=== PATIENT | male | born 1965 | race African-American/Black ===

== ENCOUNTER → 2016-09-29 | Outpatient (CLI) | payer OTHER ==
[~2016-09-29] MED LIST: CEFAZOLIN 1GM VI1 G1 IV; CEPACOL SORE T1 EAC7; CIPRO500 MG PO; CLORPACTIN WCS-92 GM IRRIG; CLOTRIMAZOLE-BE15 GM TOP; ENOXAPARIN40 MG/0.1 SUBQ; FENTANYL 0.50 MCG/ML IV PUSH; IV ANTIBIOTIC IV; LASIX 40 MG TAB40 M2 PO; LOPERAMIDE 2 MG2 M1 PO; MAGOX 400400 MG PO; NAFCILLIN 2 GM A2 G1 IV; NEURONTIN 300300 M1 PO; ONDANSETRON4 MG/2 ML IV PUSH; OXYCODONE-APAP1 EAC6 PO; PERCOCET 7.5-31 EACH PO; POTASSIUM20 PO; PROTEINEX-18 LI30 ML PO; PROTONIX40 M1 PO; RIFADIN300 MG PO; TYLENOL325 MG PO; VITAMINC500 PO; ZINC SULFATE 2220 M1 PO; [UNRECOGNIZED DRUG - OTHER]
== END ==
LOC: HYPER 07:49
DX: L89.153 Pressure ulcer of sacral region, stage 3 (principal); L89.323 Pressure ulcer of left buttock, stage 3; L89.892 Pressure ulcer of other site, stage 2; L89.893 Pressure ulcer of other site, stage 3; G82.21 Paraplegia, complete; M86.9 Osteomyelitis, unspecified; Z72.89 Other problems related to lifestyle

== ENCOUNTER → 2017-04-13 | Outpatient (CLI) | payer OTHER | LOC: HYPER 11-24 07:40 | DX: L89.224 Pressure ulcer of left hip, stage 4 (principal); L89.154 Pressure ulcer of sacral region, stage 4; L89.893 Pressure ulcer of other site, stage 3; G82.21 Paraplegia, complete; M86.9 Osteomyelitis, unspecified; Z72.89 Other problems related to lifestyle ==

== ENCOUNTER → 2017-09-05 | Outpatient (CLI) | payer MEDICARE | LOC: HYPER 06:52 | DX: L89.154 Pressure ulcer of sacral region, stage 4 (principal); L89.892 Pressure ulcer of other site, stage 2; G82.21 Paraplegia, complete; G06.1 Intraspinal abscess and granuloma; M86.68 Other chronic osteomyelitis, other site; Z72.89 Other problems related to lifestyle ==

== ENCOUNTER → 2017-10-31 | Outpatient (CLI) | payer OTHER | LOC: HYPER 06:41 | DX: L89.154 Pressure ulcer of sacral region, stage 4 (principal); L89.323 Pressure ulcer of left buttock, stage 3; L89.313 Pressure ulcer of right buttock, stage 3; L89.892 Pressure ulcer of other site, stage 2; M86.8X8 Other osteomyelitis, other site; G82.21 Paraplegia, complete; G06.1 Intraspinal abscess and granuloma; G89.4 Chronic pain syndrome; G82.20 Paraplegia, unspecified; Z72.89 Other problems related to lifestyle ==

== ENCOUNTER → 2018-08-09 | Outpatient (CLI) | payer OTHER | LOC: HYPER 08:07 | DX: L89.154 Pressure ulcer of sacral region, stage 4 (principal); L89.893 Pressure ulcer of other site, stage 3; L89.223 Pressure ulcer of left hip, stage 3; L89.213 Pressure ulcer of right hip, stage 3; M86.8X8 Other osteomyelitis, other site; G06.1 Intraspinal abscess and granuloma; G82.21 Paraplegia, complete; G89.4 Chronic pain syndrome ==

== ENCOUNTER → 2018-10-25 | Outpatient (CLI) | payer OTHER | LOC: HYPER 10-17 14:47 | DX: L89.154 Pressure ulcer of sacral region, stage 4 (principal); L89.894 Pressure ulcer of other site, stage 4; L89.323 Pressure ulcer of left buttock, stage 3; M86.8X8 Other osteomyelitis, other site; G89.4 Chronic pain syndrome; G82.21 Paraplegia, complete; G06.1 Intraspinal abscess and granuloma ==

== ENCOUNTER → 2018-11-08 | Outpatient (CLI) | payer OTHER | LOC: HYPER 07:22 | DX: L89.893 Pressure ulcer of other site, stage 3 (principal); L89.323 Pressure ulcer of left buttock, stage 3; G06.1 Intraspinal abscess and granuloma; G82.21 Paraplegia, complete; G89.4 Chronic pain syndrome; M86.8X8 Other osteomyelitis, other site ==

== ENCOUNTER → 2018-12-27 | Outpatient (CLI) | payer OTHER | LOC: HYPER 08:39 | DX: L89.154 Pressure ulcer of sacral region, stage 4 (principal); L89.893 Pressure ulcer of other site, stage 3; G82.21 Paraplegia, complete; G06.1 Intraspinal abscess and granuloma; L84 Corns and callosities; G89.4 Chronic pain syndrome ==

== ENCOUNTER → 2019-02-06 | Outpatient (CLI) | payer OTHER | LOC: HYPER 06:49 | DX: L89.154 Pressure ulcer of sacral region, stage 4 (principal); L89.224 Pressure ulcer of left hip, stage 4; L89.893 Pressure ulcer of other site, stage 3; L89.213 Pressure ulcer of right hip, stage 3; G82.21 Paraplegia, complete; G06.1 Intraspinal abscess and granuloma; L84 Corns and callosities; G89.4 Chronic pain syndrome; M86.8X8 Other osteomyelitis, other site ==

== ENCOUNTER → 2019-05-20 | Outpatient (CLI) | payer OTHER | LOC: HYPER 04-08 06:39 | DX: L89.154 Pressure ulcer of sacral region, stage 4 (principal); L89.893 Pressure ulcer of other site, stage 3; L89.213 Pressure ulcer of right hip, stage 3; L89.892 Pressure ulcer of other site, stage 2; M86.8X8 Other osteomyelitis, other site; G06.1 Intraspinal abscess and granuloma; G82.21 Paraplegia, complete; G89.4 Chronic pain syndrome; R60.0 Localized edema ==

== ENCOUNTER → 2019-07-28 | Outpatient (CLI) | payer OTHER | LOC: HYPER 07-21 19:28 | DX: L89.154 Pressure ulcer of sacral region, stage 4 (principal); L89.213 Pressure ulcer of right hip, stage 3; L89.893 Pressure ulcer of other site, stage 3; G89.4 Chronic pain syndrome; G82.21 Paraplegia, complete; G06.1 Intraspinal abscess and granuloma; M86.8X8 Other osteomyelitis, other site; D50.9 Iron deficiency anemia, unspecified; R60.0 Localized edema ==

== ENCOUNTER → 2019-12-17 | Outpatient (CLI) | payer OTHER | LOC: HYPER 09:19 | DX: L89.154 Pressure ulcer of sacral region, stage 4 (principal); G82.21 Paraplegia, complete; G06.1 Intraspinal abscess and granuloma; G89.4 Chronic pain syndrome; R60.0 Localized edema; M86.8X8 Other osteomyelitis, other site ==

== ENCOUNTER 2020-05-18 12:34 | Inpatient (IN) | payer OTHER ==
[~2020-05-18] VITALS: Ht 177.8 cm; Wt 98.9 kg
[~2020-05-18 12:34] MED LIST changes: -PERCOCET 10-321 EAC1 PO
[2020-05-18 12:56] VITALS: BP 86/53
[2020-05-18 14:06] LABS: HEMATOCRIT 22.8 % (42.0-52.0); HEMOGLOBIN 7.6 gm/dL (14.0-18.0); MCH 28.1 pg (26.0-34.0); MCHC 33.1 g/dL (28.0-37.0); PLATELET COUNT 538 thou/uL (150-400); RBC 2.69 mil/uL (4.50-6.00); RDW 14.9 % (10.5-14.5); WBC 13.8 thou/uL (4.0-11.0)
[2020-05-18 14:17] LABS: CALCIUM 8.3 mg/dL (8.5-10.1); CREATININE 2.2 mg/dL (0.7-1.3); POTASSIUM 5.2 mmol/L (3.5-5.1)
[2020-05-18 14:22] LABS: ALBUMIN 0.7 g/dL (3.4-5.0); TOTAL BILIRUBIN 0.3 mg/dL (0.2-1.0); TOTAL PROTEIN 7.3 g/dL (6.4-8.2)
[2020-05-18 14:29] LABS: ABSOLUTE NEUTROPHILS 10.8 thou/uL (1.4-8.2)
[2020-05-18 14:53] VITALS: BP 95/52
[2020-05-18 15:07] VITALS: BP 86/43
[2020-05-18 15:25] VITALS: BP 99/69
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
[2020-05-18 17:00] LABS: ALBUMIN 0.8 g/dL (3.4-5.0); TOTAL PROTEIN 6.3 g/dL (6.4-8.2)
[2020-05-18 18:10] LABS: TSH 1.932 uIU/mL (0.358-3.740)
--- NOTE | 2020-05-18 18:37 | NUR ---
WOUND: DEFERRED WOUND PIC TAKING/MEASUREMENTS UNTIL AFTER DINNER, THEN POLITELY DECLINED. STATES HE JUST CAME FROM WOUND CLINIC AND IT'S DRESSED. WITH GENTLE EDUCATION ON POLICIES FOR DIFFERING OFFICES/UNITS HE STILL DECLINED AT THIS TIME. STATES ONE OF THE PHYSICIANS TOLD HIM HE'D HAVE SURGERY FOR HIS WOUND ON SUNDAY. NO ORDERS OF THIS TIME. WILL CONTINUE TO MONITOR.
[2020-05-18 20:06] VITALS: BP 100/66
[2020-05-19 00:25] VITALS: BP 91/55
[2020-05-19 05:25] VITALS: BP 91/55
[2020-05-19 05:32] LABS: HEMATOCRIT 22.3 % (42.0-52.0); HEMOGLOBIN 7.2 gm/dL (14.0-18.0); MCH 27.9 pg (26.0-34.0); MCHC 32.3 g/dL (28.0-37.0); MCV 86.5 fL (80.0-100.0); RBC 2.58 mil/uL (4.50-6.00); RDW 15.1 % (10.5-14.5); WBC 11.2 thou/uL (4.0-11.0)
[2020-05-19 05:44] LABS: CALCIUM 7.9 mg/dL (8.5-10.1); CREATININE 2.5 mg/dL (0.7-1.3); MAGNESIUM 1.4 mg/dL (1.8-2.4); POTASSIUM 4.8 mmol/L (3.5-5.1)
[2020-05-19 08:12] VITALS: BP 92/57
--- NOTE | 2020-05-19 10:20 | NUR ---
Assess due to RD consult received. Pt paraplegic, hx chronic sacral and coccyx wound, stage IV admitted with sepsis. Secretions from wound. Has good appetite but has lost about 10 lb from usual likely related to increased nutrient demands. On vitamin C and zinc supplementation. B12 wnl. Having foods brought in by and also requesting both Ensure Max bid and Ensure Enlive 1x day. Low nutrition risk with appropriate nutrition interventions in place.
[2020-05-19 11:20] VITALS: BP 84/51
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
[2020-05-19 11:52] LABS: % SATURATION 19 % (20-39); IRON 9 ug/dL (65-175); TIBC 47 ug/dL (250-450)
[2020-05-19] MEDS ORDERED: PERCOCET 10-321 EAC1 PO (12:03)
[2020-05-19 14:04] VITALS: BP 105/58
--- NOTE | 2020-05-19 14:39 | NUR ---
ASSUMED CARE AT CHANGE OF SHIFT. A/OX4, DENIES CHEST PAIN, DENIES SOB, PAIN MANAGED WITH PRN MEDICATION. PT FROM HOME WITH FAMILY. WHEELCHAIR BOUND. SUPERPUBIC CATH 840 OUTPUT, BM 05/18/20. SACRAL WOUND WITH DRESSING INTACT. PLANS FOR DEBRIMENT TOMORROW PT NOTIFIED OF SURGERY. PT TANSFERED TO 459. REPORTED OFF TO IRVIN DA SILVA. PT EXPRESSED HE DOES NOT HAVE NORMAL APPETITE. ECOURAGED TO DRINK SUPPLEMENTS. ALL BELONGINGS AND PERSONAL WC SENT TO 459.
--- NOTE | 2020-05-19 16:41 | NUR ---
Pt transfered from ccu to 459 at 1500 per bed in stable condition.Heather rn notified about putting transfer order in. Around 1620,lab called to notify this rn that pt was positive for covid 19.Dr Leach,pt, and [facility] dry paste supervisor notified.Pt transfered to 3w per bed.Report off to Miah cisse.
--- NOTE | 2020-05-19 19:32 | NUR ---
PT WAS SEEN TODAY BY THIS RN, PT WAS STRUGGLING TO COPE WITH CURRENT DIAGNOSIS OF COVID AND CHANGING CARE PLAN REGARDING WOUND DEBRIDEMENT. PT STATED HE WOULD LIKE TO SPEAK WITH THE MD REGARDING CARE PLAN AND WANTS FURTHER EXPLANATION. RN SIGNING OFF NOW
[2020-05-19 19:41] VITALS: BP 80/49
--- NOTE | 2020-05-20 03:17 | NUR ---
ASSUMED CARE FROM DAY SHIFT, PT RESTING IN BED, WET TO DRY DRESSING TO BUTTOCK AND LARGE AMOUNT OF FOUL SMELLING DRAINAGE NOTED. DRY CLEAN PAD PLACED ON PT , BUT DRY ABD UNABLE TO STAY TO SKIN DUE TO PT SKIN MOIST.. PAIN MEDICATION TAKEN. PT RESTING WELL THROUHGOUT HOURLY ROUNDS.
[2020-05-20 04:35] LABS: HEMOGLOBIN 6.8 gm/dL (14.0-18.0)
[2020-05-20 04:36] LABS: HEMATOCRIT 21.2 % (42.0-52.0); MCH 27.7 pg (26.0-34.0); MCV 86.6 fL (80.0-100.0); RBC 2.45 mil/uL (4.50-6.00); RDW 15.3 % (10.5-14.5); WBC 9.3 thou/uL (4.0-11.0)
[2020-05-20 04:41] VITALS: BP 100/51
[2020-05-20 04:44] LABS: ALBUMIN 0.5 g/dL (3.4-5.0); CALCIUM 7.4 mg/dL (8.5-10.1); CREATININE 2.1 mg/dL (0.7-1.3); PHOSPHORUS 5.4 mg/dL (2.5-4.9); POTASSIUM 4.7 mmol/L (3.5-5.1)
[2020-05-20 05:34] LABS: URINE BILIRUBIN NEGATIVE (Negative); URINE BLOOD TRACE (Negative); URINE CLARITY CLEAR; URINE COLOR YELLOW; URINE GLUCOSE-RANDOM* NEGATIVE (Negative); URINE KETONES NEGATIVE (Negative); URINE LEUKOCYTES NEGATIVE (Negative); URINE NITRITE NEGATIVE (Negative); URINE PROTEIN (DIPSTICK) 2+ (Negative); URINE UROBILINOGEN 0.2 E.U./dl (0.2-1.0)
[2020-05-20 09:41] LABS: CRYSTALS None Seen /LPF (None Seen); FINE GRANULAR CASTS 0-3 Few /LPF (None Seen); SQUAMOUS 0-3 Few /LPF (0-3)
[2020-05-20 09:42] LABS: URINE RBC 0-2 Rare /HPF (0-2); URINE WBC 0-5 Rare /HPF (0-5)
[2020-05-20 09:43] LABS: BACTERIA 1-9 Few /HPF (None Seen)
--- NOTE | 2020-05-20 10:07 | NUR ---
DR NDIAYE HERE AND STATED TO GIVE PATIENT PO MEDS AND HEPARIN AFTER SURGERY. PT RESTING COMFORTABLY.
--- NOTE | 2020-05-20 14:09 | NUR ---
SW reviewed chart and spoke with nursing and attending physician. Pt was transferred to from 4/CCU yesterday after receiving positive COVID test. Pt in Enhanced Isolation and on IV abx. Pt scheduled to have surgical debridement today. VASILIY is following to assist as needed with discharge planning.
[2020-05-20 15:45] VITALS: BP 84/49
--- NOTE | 2020-05-20 15:54 | NUR ---
PATIENT RETURNED TO ROOM FROM OR [id number] 19 58 84/49 O2 SAT 99 % RA. TELE RECONNECTED. PT REG DIET GIVEN ICE WATER. IV IRON INFUSING ORDERED. PT STATES NO PAIN.
[2020-05-20 19:46] VITALS: BP 88/53
--- NOTE | 2020-05-21 01:03 | NUR ---
2100: DR. SILVA ROUNDMISHA ON PATIENT. HE HAS GIVEN HIS PERMISSION FOR THIS PATIENT TO BE DISCHARGE 05/21/20. THRESHOLD VALUE: GREATER THAN 35.
--- NOTE | 2020-05-21 05:03 | NUR ---
encouraged turns tonight. po pain medication effective for pain control. sacral,isheal,rt hip dressing is surgical from 05/22 debridement. dressing has shadowing and is leaking some pink drainage from superior edge, the chux under pad required changing. pt is very irritable, does not do well making his wishes known. carepan reviewed.
[2020-05-21 05:55] VITALS: BP 121/78
[2020-05-21 06:01] LABS: MCH 27.4 pg (26.0-34.0); MCHC 31.5 g/dL (28.0-37.0); MCV 87.1 fL (80.0-100.0); RBC 2.16 mil/uL (4.50-6.00); RDW 15.3 % (10.5-14.5); WBC 11.3 thou/uL (4.0-11.0)
[2020-05-21 06:13] LABS: HEMATOCRIT 18.8 % (42.0-52.0); HEMOGLOBIN 5.9 gm/dL (14.0-18.0)
[2020-05-21 07:44] VITALS: BP 70/42
[2020-05-21 08:07] LABS: CALCIUM 7.6 mg/dL (8.5-10.1); CREATININE 2.6 mg/dL (0.7-1.3); PHOSPHORUS 6.3 mg/dL (2.5-4.9); POTASSIUM 5.2 mmol/L (3.5-5.1)
[2020-05-21 08:09] LABS: ALBUMIN 0.5 g/dL (3.4-5.0)
--- NOTE | 2020-05-21 09:49 | NUR ---
COVID 19 TEST DONE AT THIS TIME L NARE TAKEN TO LAB
[2020-05-21 10:51] VITALS: BP 75/41; BP 80/41; BP 81/43
[2020-05-21 15:14] VITALS: BP 66/36; BP 82/54; BP 83/54; BP 85/52
--- NOTE | 2020-05-21 17:55 | NUR ---
DR CARLOS WOUND CARE DOCTOR HERE TO SEE PATIENT STATES TO RESUME TX BEFORE DEBRIDEMENT PER DR DAWSON THIS NURSE DID TX'S WITH DAKINS ORDERED.
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
[2020-05-21 19:36] VITALS: BP 82/50
[2020-05-21 21:41] VITALS: BP 84/478
[2020-05-22] VITALS (9 sets, daily range): BP systolic 77–95; BP diastolic 45–53
[2020-05-22 02:38] LABS: HEMATOCRIT 24.7 % (42.0-52.0); MCH 27.7 pg (26.0-34.0); MCHC 32.5 g/dL (28.0-37.0); MCV 85.3 fL (80.0-100.0); RBC 2.89 mil/uL (4.50-6.00); RDW 15.1 % (10.5-14.5); WBC 12.9 thou/uL (4.0-11.0)
[2020-05-22 03:18] LABS: CALCIUM 7.4 mg/dL (8.5-10.1); MAGNESIUM 1.4 mg/dL (1.8-2.4); POTASSIUM 5.1 mmol/L (3.5-5.1)
--- NOTE | 2020-05-22 04:11 | NUR ---
PT ALERT AND ORIENTED X4. BP HAS BEEN RUNNING LOW. ENCOURAGED PO FLUIDS. PT IS NONCOMPLIANT. WOULD NOT FINISH TEA. ZOFRAN GIVEN FOR NAUSEA. OXY CODONE GIVEN FOR C/O BUTOCK PAIN FROM WOUND. PT SLEPT AFTER PAIN MEDS. NS AT 150 PER IV L AC INFUSING. ZOSYN HUNG ORDERED. DR WHITE NOTIFIED RE BP DECREASED INTO 70'S. STAT LABS DONE. HG 8. ALBUMIN HUNG ORDERED FOR BP IN THE 70'S. BP BACK TO 88/53 MAP 61 AFTER ALBUMIN. PT RESTING QUIETLY . ENC PT TO TURN Q 2 HRS. DRESSING INTACT TO SACRAL WOUND WITH MODERATE AMOUTS BLOODY DRAINAGE NOTED.
--- NOTE | 2020-05-22 06:24 | NUR ---
NOTIFIED JAY WHITE OF BP STILL LOW WITH MAP 54. SHE STATED SHE WILL PASS IT ON IN REPORT TO DR NDIAYE. PT ASYMPTOMATIC WITH CURRENT BP. UO 450.
--- NOTE | 2020-05-22 18:21 | NUR ---
ASSUMED PATIENT CARE AT 0700. A/O X4. POOR APPETITE, ONLY 2-3 BIT EACH MEAL. BP AT SOFT SIDE. DRESSING CHANGE PER ORDER. SLOWLY TOWARDS POC GOALS.
[2020-05-23] VITALS (7 sets, daily range): BP systolic 89–100; BP diastolic 48–65
--- NOTE | 2020-05-23 09:20 | NUR ---
PT ALERT AND ORIENTED. BP BETTER TONIGHT WITH MIDODRINE. PT REFUSING TO EAT. HE WILL DRINK ENSURE. IV SITE X2 INFILTRATED. ARMS ARE EDEMATOUS. FEET HAVE 1 + EDEMA ALSO. LAB UNABLE TO GET LABS FOR THIS AM. NOTIFIED DAY SHIFT NS TO CALL FOR POSSIBLE PICC OR IV TEAM TO COME AGAIN. DRESSINGS TO WOUNDS ARE INTACT.
--- NOTE | 2020-05-23 10:03 | NUR ---
ASSUMED PATIENT CARE THIS AM AT APPROXIMATELY 0700. PATIENT IS AWAKE AND ALERT, SLEEPING AT THIS TIME. STATES HE IS FEELING TIRED/NAUSEATED THIS AM. NO IV ACCESS THIS AM IV TO RIGHT ARM INFILTRATED AND PATIENT BILATERAL ARMS ARE VERY EDEMATOUS. PATIENT STATES LAB WAS UNABLE TO DRAW BLOOD THIS AM BECAUSE HE IS A HARD STICK. STATES THAT HE DOES NOT WANT TO TAKE HIS PO MEDICATIONS AT THIS TIME BECAUSE HE IS FEELING NAUSEATED. IV TEAM CALLED FOR IV ACCESS. PAGED DR. NDIAYE TO ASK REGARDING PICC LINE IF APPROPRIATE.
--- NOTE | 2020-05-23 10:19 | NUR ---
discussed during prime time via phone call, still trying to stabilized his bp. he is covid +, from home. still requiring IV ABX. will cont following as needed for dc needs.
--- NOTE | 2020-05-23 11:16 | NUR ---
spoke with rivera rn with iv team. obtained order for picc for patient, states that creat is elevated and need approval from renal md for picc line insertion. dr mo states that he wants iv team to attempt to insert a peripheral iv first then if unable to achieve access then go ahead with picc line. rivera states she will speak with patient and attempt periphearal line first.
--- NOTE | 2020-05-23 12:17 | NUR ---
VASCULAR ACCESS NURSE CONSULTED FOR A PICC IF UNABLE TO GET A PERIPHERAL IV, A PERIPHERAL IV WAS OBTAINED WITH ULTRASOUND AND ALL LABS WERE DRAWN WITH IV STICK. PIV SECURED. THIS PATIENTS BILATERAL ARMS ARM EXTREMELY SWOLLEN WITH SMALL VEINS. A POOR CANIDATE FOR PICC AND MIDLINE ACCESS. IF A LONGER TERM ACCESS IS NEEDED A CENTRAL LINE WOULD BE MORE APPROPRIATE FOR THIS PATIENT IF NECESSARY.
[2020-05-23 12:35] LABS: ALBUMIN 0.8 g/dL (3.4-5.0); CALCIUM 7.7 mg/dL (8.5-10.1); CREATININE 3.3 mg/dL (0.7-1.3); PHOSPHORUS 5.8 mg/dL (2.5-4.9); POTASSIUM 4.6 mmol/L (3.5-5.1)
--- NOTE | 2020-05-24 01:24 | NUR ---
Pt prgressing slowly towards d/c goals. Bp better . Pt c/o pain to buttocks Medicated with oxycodone. Pt presently sleeping quietly no c/o. Encouraged pt to turn side to side to allow wounds to heal. Encouraged pt to eat and drink more protein in order for wounds to heal. Bed down in low locked position. Call light in reach . Bed alarm is on. SR on moitor. Will continue to monitor pt for changes.
[2020-05-24 03:53] VITALS: BP 92/52
--- NOTE | 2020-05-24 06:34 | NUR ---
PT RESTING QUIETLY. NO S/S DISTRESS. VSS. NO C/O PAIN PRESENTLY. PT FELLASLEEP AFTER OXYCODONE GIVEM DMITRI AND NICHOLAS X1.
[2020-05-24 08:15] VITALS: BP 99/66
[2020-05-24 11:31] VITALS: BP 106/65
--- NOTE | 2020-05-24 12:56 | NUR ---
DUE TO Pt'S CURRENT LIMITED MOBILITY PER DOCTOR'S ORDERS (NO SHEARING FORCE TO BUTTOCKS; ONLY MECHANICAL LIFTS FOR TRANSFERS BED<>W/C), Pt NO LONGER REQUIRES SKILLED P.T. GOALS ARE NO LONGER APPROPRIATE. WILL SIGN OFF/DISCHARGE Pt AT THIS TIME
--- NOTE | 2020-05-24 13:31 | NUR ---
TODAY MEDINA 3RD ATTEMPT FOR OT TO EVALUATE PT. PT. REPORTS HE DOES NOT WANT OT SERVICES, POLITEFULLY DECLINES OT. STATES HE FEELS HE DOES NOT NEED THERAPY RIGHT NOT AND WANTS TO ONLY FOCUS ON HIS WOUND HEALING. DECLINES THERAPY EVAL. STATES HE HAS HIS THERABAND THE OTHER OT (JIAN) PROVIDED HIM AND HE WILL CONTINUE TO USE IT. ACUTE OT SIGNING OFF.
--- NOTE | 2020-05-24 15:07 | PATH ---
[facility] [address] [address] PATHOLOGY RPT PROCEDURE Name: YANELY SOUZASTERLING Medina Room #: 357-P ADM IN M.R.#: [id number] Admission: 05/18/20 Date of : 63 Discharge: Report #: [id number] Path Case #: [id number] LCA Accession Number: [id number] . 01 Material submitted: . PART A: sacrum - SACRAL TISSUE PART B: sacrum - SACRAL BONE . 01 Clinical history: . DECUBITUS ULCER OF SACRUM, SEPSIS, CELLULITIS, UNIQUE, PARAPLEGIC . 02 Diagnosis: A. Sacral tissue, debridement: - Skin and subcutaneous tissue showing ulceration along with extensive gangrenous necrosis. - Squamous epithelium showing reactive changes. . B. Sacral bone, debridement: - Marked acute osteomyelitis associated with marked acute inflammation within adjacent tissues. (IUV:margaret; 05/24/2020) QMS 05/24/2020 1257 Local . 02 Electronically signed: . Jeaneth Gross MD, Pathologist NPI- [id number] . 01 Gross description: . A. The specimen is received in formalin, labeled "Magdy Souza, sacral tissue". Received are multiple segments of dusky hammer-scherer to necrotic-appearing skin admixed with yellow-scherer to dusky pink-hammer soft tissue and possible muscle the specimen is submitted representatively in cassette A1. . B. The specimen is received in formalin, labeled "Magdy Souza, sacral bone". Received are multiple fragments of light scherer bone admixed with hammer-brown soft tissue measuring 3.8 x 3.2 x 0.8 cm in aggregate dimensions. The specimen is submitted representatively in cassette B1, following light decalcification. (CAA; 05/21/2020) QA/QA 05/21/2020 1333 Local . 02 Pathologist provided ICD-10: L89.159 . 02 CPT . 048483, [id number], [id number] [place] [id number] PATHOLOGY RPT PROCEDURE Name: MAGDY SOUZA Room #: 357-P [facility] IN M.R.#: [id number] Admission: 05/18/20 Date of : 63 Discharge: Report #: [id number] Path Case #: [id number] Specimen Comment: A courtesy copy of this report has been sent to [phone], [phone]- Specimen Comment: [phone], Specimen Comment: Report sent to ,DR NDIAYE / DR DE LA CRUZ Performed at: [address], [place], [place] [id number] MD Jeremie Muñoz MD Phone: [phone] Performed at: [address] [id number] MD Jeaneth Gross MD Phone: [phone]
--- NOTE | 2020-05-24 16:18 | NUR ---
SW reviewed chart and spoke with nursing and attending physician. Pt is Enhanced Isolation due to COVID-19. Pt to have PICC line placed today and plan is for lap-assisted diverting colostomy and excisional and ultrasonic debridement of sacral decubitus ulcer on Sunday morning. Pt is afebrile and on IV abx. Pt is not requiring O2. SW is following to assist as needed with discharge planning.
[2020-05-24 18:38] VITALS: BP 93/57
--- NOTE | 2020-05-24 19:14 | NUR ---
VAT CONSULTED FOR A PICC FOR LT ABX. PT HAS HX OF PARAPLEGIA, GROSS EDEMA, WEEPING SKIN WHERE PICC SITE WOULD BE AND UNIQUE. DUE TO THE ISSUES ABOVE AND A DISCUSSION WITH DR SILVA A TICC WILL BE A BETTER OPTION FOR HIM. DISCUSSED WITH PT WELL. SPOKE WITH IR STAFF AND PT ON SCHEDULE FOR TICC FOR AFTERNOON 05/25/20 AND SHOULD BE NPO AFTER MN.
[2020-05-24 20:11] VITALS: BP 102/56
[2020-05-25 04:17] VITALS: BP 111/70
--- NOTE | 2020-05-25 06:07 | NUR ---
PT ALERT AND ORIENTED X4. VSS AFEBRILE. STILL HAS SWELLING BOTH ARMS AND FEET. REPOSITIONING PT Q 2 HRS. HE IS ABLE TO TURN SELF . WOUND CARE DONE ORDERED. PT WAS INC OF FORMED BROWN STOOL IN LARGE AMOUNTS. PT CONSENTED TO PICC LINE PROCEDURE TODAY. NO S/S DISTRESS. BP WNL TONIGHT.
[2020-05-25 06:09] LABS: HEMOGLOBIN 7.4 gm/dL (14.0-18.0); MCH 27.2 pg (26.0-34.0); MCHC 30.9 g/dL (28.0-37.0); RBC 2.72 mil/uL (4.50-6.00); RDW 16.1 % (10.5-14.5); WBC 15.4 thou/uL (4.0-11.0)
[2020-05-25 06:28] LABS: ALBUMIN 0.7 g/dL (3.4-5.0); CALCIUM 7.4 mg/dL (8.5-10.1); CREATININE 4.1 mg/dL (0.7-1.3); MAGNESIUM 1.6 mg/dL (1.8-2.4); PHOSPHORUS 5.3 mg/dL (2.5-4.9); POTASSIUM 4.4 mmol/L (3.5-5.1)
[2020-05-25 07:39] VITALS: BP 96/59
[2020-05-25 07:52] LABS: APTT 49.3 Seconds (24.5-32.8); INR 1.2; PROTIME 12.1 Seconds (9.3-11.4)
--- NOTE | 2020-05-25 13:40 | NUR ---
SW reviewed chart and spoke with nursing and attending physician. Pt is in Enhanced Isolation due to COVID-19. Pt is afebrile and in IV abx. Not requiring O2. Pt to have PICC line placed today and diverting colostomy tomorrow. Pt may need to start dialysis. SW requested attending physician to discuss LTAC placement with pt. Pt has been to [facility] in the past. SW is following to assist as needed with discharge planning.
[2020-05-25 15:45] VITALS: BP 104/64
[2020-05-25 19:14] VITALS: BP 114/71
[2020-05-26 03:42] VITALS: BP 103/72
[2020-05-26 06:26] LABS: HEMOGLOBIN 7.1 gm/dL (14.0-18.0); MCH 28.3 pg (26.0-34.0); MCHC 32.4 g/dL (28.0-37.0); MCV 87.4 fL (80.0-100.0); RBC 2.52 mil/uL (4.50-6.00); RDW 16.2 % (10.5-14.5)
--- NOTE | 2020-05-26 06:27 | NUR ---
PT MAKING PROGRESS TOWARDS GOALS. ON ROOM AIR [id number] THE NIGHT. DENIED ANY SOA AT REST. ABLE TO ASSIST WITH TURNING BY GRABBING THE RAILING. NO BM OVERNIGHT. DESULFURIZER HAND ATTEMPED TO GIVE PT BATH BUT HE REPORTEDLY REFUSED. WHILE SPEAKING WITH PT, THIS RN INFORMED HIM THAT IT WAS A STANDARD PRESURGERY BATH BUT PT CONTINUED TO REFUSE. "I'M TRYING TO GET SOME SLEEP HERE, BUT CONSTANT INTERRUPTIONS FOR THIS AND THAT, BEEPING THINGS, I CAN'T GET NO SLEEP."
[2020-05-26 06:55] LABS: ALBUMIN 0.6 g/dL (3.4-5.0); CALCIUM 7.3 mg/dL (8.5-10.1); MAGNESIUM 1.6 mg/dL (1.8-2.4); PHOSPHORUS 5.6 mg/dL (2.5-4.9); POTASSIUM 4.7 mmol/L (3.5-5.1)
[2020-05-26 08:11] VITALS: BP 126/73
--- NOTE | 2020-05-26 13:09 | NUR ---
SW reviewed chart and spoke with nursing and attending physician. Pt is in Enhanced Isolation due to COVID-19. Pt is afebrile and on IV abx. Pt to have diverting colostomy placed today. Attending physician to discuss LTAC placement with pt. SW is following to assist as needed with discharge planning.
[2020-05-26 15:10] VITALS: BP 96/63
[2020-05-26 17:58] VITALS: BP 113/74
--- NOTE | 2020-05-26 18:42 | NUR ---
Pt left for surgery 1130. Returned at 1500. He was alert and arousable, yet sleepy. O2 in place for comfort. Colostomy located RUQ, bloody liquid noted, no issues. IV fluids infusing. At this time pt c/o pain to RUQ, pp given. He remains on a clear liquid diet. Pt educated regarding colosomy maintenance. Drsg to sacrum dry and intact. Fluids enouraged, call light in reach.
[2020-05-26 20:05] VITALS: BP 121/56; BP 21/56
[2020-05-27] VITALS (8 sets, daily range): BP systolic 11–128; BP diastolic 58–77
--- NOTE | 2020-05-27 05:50 | NUR ---
PT MAKING POOR PROGRESS TOWARS GOALS. ON NA BICARG GTT AT 100ML/HR OVERNIGHT. NOTED SUPRAPUBIC URINARY OUTPUT 160ML FOR PAST 12 HOURS (400ML RECORDED ON DAY SHIFT). WILL ASK DAY RN TO REPORT UOP TO RENAL SERVICE.
[2020-05-27 06:02] LABS: MCV 86.7 fL (80.0-100.0)
[2020-05-27 06:04] LABS: MCH 28.1 pg (26.0-34.0); MCHC 32.4 g/dL (28.0-37.0); RBC 2.18 mil/uL (4.50-6.00); RDW 16.3 % (10.5-14.5); WBC 11.2 thou/uL (4.0-11.0)
[2020-05-27 06:17] LABS: HEMATOCRIT 18.9 % (42.0-52.0); HEMOGLOBIN 6.1 gm/dL (14.0-18.0)
[2020-05-27 07:07] LABS: ALBUMIN 0.6 g/dL (3.4-5.0); CALCIUM 7.3 mg/dL (8.5-10.1); CREATININE 4.3 mg/dL (0.7-1.3); PHOSPHORUS 5.7 mg/dL (2.5-4.9); POTASSIUM 4.5 mmol/L (3.5-5.1)
--- NOTE | 2020-05-27 09:31 | NUR ---
OSTOMY CARE; ALERT, COOPERATIVE, STOMA DARK BEEFY RED, NO STOOL, SCANT BRIGHT RED BLOODY DRAIANGE, POUCH INTACT, NO LEAKAGE, VERY RECEPTIVE TO OSTOMY EDUCATION AND MANAGEMENT, STATES FATHER HAD AN OSTOMY AND HIS MOTHER ASSISTED W/ CARE, STATES MOTHER AND/OR FAMILY MEMBERS WOULD BE WILLING TO ASSIST W/ OSTOMY CARE THEY HELPED W/ WOUND CARE, SUPPLIES AND TEACHING INFO LEFT AT BS, WILL ORDER SECURE START SYSTEM TO BE SENT TO HOME, WILL CONT TO FOLLOW PRN
--- NOTE | 2020-05-27 13:19 | NUR ---
VASILIY reviewed chart and spoke with nursing and attending physician. Pt is s/p diverting colostomy placement. Pt remains on IV abx. Pt to have a blood transfusion today. truck crane operator helper provided education to pt at bedside earlier today. VASILIY placed call to pt's room to discuss discharge plans. No answer. VASILIY will continue to contact pt to discuss LTAC placement v. home with HH. VASILIY is following to assist as needed with discharge planning.
--- NOTE | 2020-05-27 17:53 | NUR ---
RN HAS ASSUMED PT'S CARE AT 0700AM, PT IS A&OX3, PT IS CONTINUING IV ABX AND PAIN MANAGEMENT AND WOUND CARE , PT'S NEW COLOSYOMY BAG HAS VERY SMALL LIGHT RED LIQUID DRINAGE, PT HAS 1UNIT BLOOD TRANFUSION TODAY, PT IS TOLERATED , NO TRANSFUSION REACHING BY THIS TIME, RN HAS CALLED TO REPORT PT'S LOW OUTPUT ( URINE ) AND PT'S ABD IS DISTENDED, NEW ORDER RECEIVED,
--- NOTE | 2020-05-28 00:24 | NUR ---
ASSESSMENT: PT REMAIN ALERT AND ORIENT TIMES THREE. FORGETFUL AT TIMES. VSS, AFBRILE. MED-SURG STATUS. PT REFUSED DRESSING CHANGE ON RIGHT ISCHIAL AND SACRUM STATING THAT "IT DOESN'T NEED CHANGING". DRESSING WAS INTACT. KUB RESULTS DID NOT REVEAL A BLOCKAGE OF COLOSTOMY. COLOSTOMY PUTTING OUT MINIMAL AMT OF DARK BLOODY LIQUID. PT STATE THAT "IT FEELS LIKE POOP WILL COME OUT OF MY MOUTH". PRN PAIN MEDS GIVEN WITH PARTIAL RELIEF. PT TURNS SELF IN BED. SUPER PUBIC CATH NOTED WITH MINIMAL AMT OF UO. WILL CONTINUE TO MONITOR OUTPUT THROUGH OUT SHIFT. SLOW PROGRESS TOWARDS DC GOALS.
[2020-05-28 06:29] LABS: ABSOLUTE NEUTROPHILS 13.9 thou/uL (1.4-8.2); BASOPHILS 0.3 % (0.0-2.0); EOSINOPHILS 1.5 % (0.0-3.0); HEMATOCRIT 21.2 % (42.0-52.0); LYMPHOCYTES 17.1 % (24.0-44.0); MCH 28.6 pg (26.0-34.0); MCHC 33.3 g/dL (28.0-37.0); MONOCYTES 5.9 % (1.0-8.0); PLATELET COUNT 379 thou/uL (150-400); POLYS 75.2 % (36.0-66.0); RBC 2.46 mil/uL (4.50-6.00); RDW 16.1 % (10.5-14.5); WBC 18.5 thou/uL (4.0-11.0)
[2020-05-28 06:38] LABS: ALBUMIN 0.7 g/dL (3.4-5.0); CALCIUM 7.4 mg/dL (8.5-10.1); CREATININE 4.7 mg/dL (0.7-1.3); PHOSPHORUS 6.1 mg/dL (2.5-4.9); POTASSIUM 4.4 mmol/L (3.5-5.1)
[2020-05-28 07:58] VITALS: BP 167/81
--- NOTE | 2020-05-28 09:17 | NUR ---
OSTOMY CARE; ALERT, COOPERATIVE, NO STOOL YET, PT STATES HE HAS NOT NOTICED ANY FLATUS EITHER, ABD SOFT BUT FEELS SLIGHTLY DISTENDED, POUCH INTACT, NO LEAKAGE, SCANT DARK REDDISH DRAINAGE, RECEPTIVE TO EDUCATION, SUPPLIES AT BS, WILL CONT TO FOLLOW
--- NOTE | 2020-05-28 12:45 | NUR ---
RD Recommendations: *Pt now with minimum of 5 days of very poor nutrition. Averaging < 20% meals, 4 out of 15 recent meals refused, 10 out of last 15 meals refused or only 5-10% consumed. Despite ongoing oral supplements TID, pt has severely declined in intake, or stopped drinking these as well. *If no PO improvement following the weekend, consider possible need for nutrition support w/ temporary ENTERAL feeds if gut function is working to optimize nutrition and/or TPN if awaiting return of gut function - though TPN poses increased risk for infection.
[2020-05-28 15:17] VITALS: BP 137/79
--- NOTE | 2020-05-28 15:42 | NUR ---
SW reviewed chart and spoke with nursing and attending physician. Pt is in Enhanced Isolation due to COVID-19. Pt is on IV abx. No weekend discharge planned. VASILIY placed call to pt's room to discuss discharge plan. No answer. VASILIY is following to assist as needed with discharge planning.
--- NOTE | 2020-05-28 16:06 | PATH ---
[facility] [address] [place] [address] PATHOLOGY RPT PROCEDURE Name: JOHN SOUZA Adam Room #: 357-P ADM IN M.R.#: [id number] Admission: 05/18/20 Date of : 63 Discharge: Report #: [id number] Path Case #: [id number] [facility] Accession Number: [id number] . 01 Material submitted: . PART A: sacrum - SACRAL SOFT TISSUE PART B: sacrum - SACRAL BONE . 01 Clinical history: . BONE SHOWING IN WOUND; SACRAL DECUBITUS ULCER AND INCONTINENCE . 02 Diagnosis: A. Skin and subcutaneous tissue, sacral soft tissue, debridement: - Ulceration along with fibrinoid degeneration and gangrenous necrosis. - Marked acute inflammation extends into deep subcutaneous tissues. . B. Bone, sacral bone, debridement: - Marked acute osteomyelitis. - Few fragments of skin and subcutaneous tissue with ulceration, fibrinoid degeneration as well as gangrenous necrosis. (IUV/db; 05/28/2020) LBQ 05/28/2020 1525 Local . 02 Electronically signed: . Jeaneth Gross MD, Pathologist NPI- [id number] . 01 Gross description: . A. The specimen is received in formalin, labeled "[place], sacral soft tissue". Received are two segments of hammer-brown to red-brown skin with attached underlying soft tissue measuring 9.0 x 5.9 x 3.3 cm in aggregate dimensions. The specimen is submitted representatively in cassette A1. . B. The specimen is received in formalin, labeled "[place], sacral bone". Received are multiple segments of light scherer bone admixed with a slight amount of soft tissue measuring 4.2 x 3.5 x 0.7 cm in aggregate dimensions. The specimen is submitted representatively in cassette B1, following light decalcification. (CAA; 05/27/2020) QA/[facility] 05/28/2020 1521 Local . 02 Pathologist provided ICD-10: M46.28, L89.159 . 02 CPT . 525825, [id number], [id number] [place] [address] PATHOLOGY RPT PROCEDURE Name: JOHN SOUZA Adam Room #: 357-P [facility] IN M.R.#: [id number] Admission: 05/18/20 Date of : 63 Discharge: Report #: [id number] Path Case #: [id number] Specimen Comment: A courtesy copy of this report has been sent to [phone], [phone]- Specimen Comment: [phone], Specimen Comment: Report sent to ,DR NDIAYE / DR DE LA CRUZ Performed at: [address], [place] [id number] MD Jeremie Muñoz MD Phone: [phone] Performed at: [address] [id number] MD Jeaneth Gross MD Phone: [phone]
--- NOTE | 2020-05-28 17:44 | NUR ---
RN HAS ASSUMED PT'S CARE AT 0700AM, PT IS A&OX2 ( PERSON AND PLACE ), PT CAN FOLLOW COMMANDS, RN HAS REPORTED RENAL DR ABOUT PT'S LOW RUINE OUTPUT , PT'S IV FLUID HAS DC, IV LASIX 40MG IV BID PER NEW ORDER, PT'S OUTPUT HAS IMPROVED , PT HAS URINE 650ML BY THIS TIME, PT STARTS SMALL EATING AND DRINKING, PT'S COLOSTOMY BAG HAS 20ML LIQUIND STOOL BY THIS TIME, RN HAS CALLED SURGICAL DR TO REPORT PT'S LOW STOOL OUTPUT AND VOMITTING , NEW ORDER : STAT ABD XRAY KUB AND CALL RESULTS TO DR, RN WILL REPORT TO NEXT SHIFT .
[2020-05-28 19:59] VITALS: BP 134/73
[2020-05-28 22:06] LABS: COMPLEMENT-C3 76 mg/dL (82-167); COMPLEMENT-C4 28 mg/dL (14-44)
--- NOTE | 2020-05-28 22:24 | NUR ---
PT ALERT AND ORIENTED X3. REORIENTED TO CORRECT HOSPITAL. HE THOUGHT HE WAS AT [facility]. PT IS [facility]. NS HAS TO REPEAT SEVERAL TIMES FOR PT TO UNDERSTAND. VSS AFEBRILE. KUB DONE. RESULTS READ TO DR MCDONOUGH . PT CONTINUES TO HAVE A DISTENDED ABDOMEN. BS HYPOACTIVE. COLOSTOMY HAS APPROXIMATELY 50 ML DARK BLOODY DRAINAGE NOTED AND 1 SMALL FORMED BROWN STOOL NOTED. INFORMED PT WANTS NG TO LIS. PT REFUSED. HE STATED HE FEELS MUCH BETTER AND SPILLED HIS BREAKFAST PLATE MIXED WITH SOME EMESIS AND MADE IT LOOK MUCH WORSE THAN IT WAS. I EXPLAINED TO HIM RATIONALE FOR NG. HE STILL REFUSED. CHARGE NS NOTIFIED. DR MCDONOUGH NOTIFED OF PTS REFUSAL. WILL REPEAT KUB AT 0800 ORDERED. PT DENIED NEED FOR PAIN PILL. IV ABX STARTED ORDERED. WILL CONTINUE TO MONITOR PT FOR CHANGES. TURNING PT Q 2 HRS.
[2020-05-29 03:19] VITALS: BP 143/88
--- NOTE | 2020-05-29 03:34 | NUR ---
PT RESTING QUIETLY. NO C/O PAIN. NO S/S DISTRESS. VSS.AFEBRILE. COLOSTOMY HAS SMALL AMT OF STOOL NOTED WITH 250 ML DARK BROWN/ RED DRAINAGE NOTED.
[2020-05-29 05:16] LABS: HEMOGLOBIN 6.9 gm/dL (14.0-18.0)
[2020-05-29 05:18] LABS: HEMATOCRIT 20.9 % (42.0-52.0); MCH 28.3 pg (26.0-34.0); MCHC 33.1 g/dL (28.0-37.0); MCV 85.4 fL (80.0-100.0); RBC 2.44 mil/uL (4.50-6.00); RDW 16.3 % (10.5-14.5); WBC 19.1 thou/uL (4.0-11.0)
[2020-05-29 05:39] LABS: ALBUMIN 0.6 g/dL (3.4-5.0); CALCIUM 7.5 mg/dL (8.5-10.1); CREATININE 4.8 mg/dL (0.7-1.3); PHOSPHORUS 6.1 mg/dL (2.5-4.9); POTASSIUM 4.4 mmol/L (3.5-5.1)
--- NOTE | 2020-05-29 05:45 | NUR ---
NOTIFIED Savana SALMERON OF HG 6.9. NO ORDERS GIVEN.
[2020-05-29 07:29] VITALS: BP 150/85
[2020-05-29 14:57] LABS: PROT/CREAT RATIO 11.3; URINE CREATININE-RANDOM* <13 mg/dL; URINE PROTEIN-RANDOM* 147.4 mg/dL (<11.9)
[2020-05-29 15:41] VITALS: BP 130/80
[2020-05-29 17:53] VITALS: BP 133/81; BP 150/90
[2020-05-29 21:51] VITALS: BP 133/81
[2020-05-30 02:50] LABS: HEMATOCRIT 25.3 % (42.0-52.0); HEMOGLOBIN 8.3 gm/dL (14.0-18.0); MCH 28.3 pg (26.0-34.0); MCHC 32.8 g/dL (28.0-37.0); MCV 86.2 fL (80.0-100.0); RBC 2.94 mil/uL (4.50-6.00); RDW 16.4 % (10.5-14.5); WBC 20.2 thou/uL (4.0-11.0)
[2020-05-30 02:59] LABS: ALBUMIN 0.6 g/dL (3.4-5.0); CALCIUM 7.4 mg/dL (8.5-10.1); CREATININE 4.8 mg/dL (0.7-1.3); PHOSPHORUS 6.2 mg/dL (2.5-4.9); POTASSIUM 4.4 mmol/L (3.5-5.1)
[2020-05-30 07:56] VITALS: BP 132/83
--- NOTE | 2020-05-30 08:00 | NUR ---
WHILE IN ROOM FOR ASSESSMENT. TALKED ABOUT WOUND CARE WITH PT. PT WOULD LIKE HIS WOUND CARE DONE AROUND 2 WITH A PAIN PILL PRIOR TO DRESSING CHANGE. PT REFUSES TURNING AT THIS TIME. PT ASKING QUESTIONS REGUARDING HIS OSTOMY. VERBAL DISCUSSION HAD.
--- NOTE | 2020-05-30 12:41 | NUR ---
RENAL DIET TAKEN INTO PT, SET ON BEDSIDE TABLE. ASKED PT IF HE WOULD LIKE ME TO HELP HIM SIT UP AND TURN THE LIGHTS ON SO HE CAN EAT. PT STATES -NO JUST PUT IT THERE I WILL GET IT IN A BIT- AND TURNS HIS HEAD BACK TO THE LEFT AND CLOSES HIS EYES.
[2020-05-30 16:32] VITALS: BP 142/87
[2020-05-30 20:06] VITALS: BP 129/76
--- NOTE | 2020-05-30 22:21 | NUR ---
PT IS ALERT AND ORIENTED X4. VSS AFEBRILE. HRR . LUNGS CLEAR. COLOSTOMY HAD MODERATE AMTS OF DARK-GREEN BROWN STOOL NOTED. S/P CATHEER HAS LG AMTS OF LIGHT CLEAR YELLOW URINE. NO C/O PAIN. ABX INFUSING. WILL CONINUE TO MONITOR PT FOR CHANGES.
[2020-05-31 03:35] VITALS: BP 140/84
--- NOTE | 2020-05-31 04:54 | NUR ---
PT RESTING QUIETLY. PROGRESSING TOWARDS D/C GOALS. ENC. PT TO TURN. HE WILL ONLY TURN FROM BACK TO LEFT SIDE. NO C/O PAIN. NO S/S DISTRESS.
[2020-05-31 07:47] VITALS: BP 140/83
[2020-05-31 08:07] LABS: CALCIUM 7.6 mg/dL (8.5-10.1); POTASSIUM 4.1 mmol/L (3.5-5.1)
[2020-05-31 08:10] LABS: CREATININE 3.8 mg/dL (0.7-1.3)
[2020-05-31 08:11] LABS: ALBUMIN 0.9 g/dL (3.4-5.0); PHOSPHORUS 5.8 mg/dL (2.5-4.9)
--- NOTE | 2020-05-31 09:24 | NUR ---
OSTOMY CARE NOTE; ALERT AND COOPERATIVE, POUCH ON X5 DAYS, CHANGED USING SHERI CUT TO FIT APPLIANCE, STOMA RED, VIABLE, BUDDED, PERISTOMAL SKIN INTACT, LOOSE BROWN STOOL NOTED, ADAPT RING APPLIED UNDER WAFER, RECEPTIVE TO EDUCATION, INFO AND SUPPLIES LEFT AT BS, ENCOURAGED TO PARTICIPATE IN OSTOMY CARE, REMINDED PT IS ENROLLED IN SHERI SECURE START PROGRAM WHERE DC KIT W/ SUPPLIES BEING SENT TO HOME RECOMMENDATIONS; CONT SHERI CUT TO FIT APPLIANCE, EMPTY PRN, CHANGE Q3-4 DAYS COAT CUTTER AWARE
[2020-05-31 13:07] LABS: ANA INTERPRETATION Negative (Negative)
--- NOTE | 2020-05-31 14:14 | NUR ---
VASILIY reviewed chart and spoke with nursing and attending physician. Pt remains in Enhanced Isolation due to COVID-19. Pt is afebrile and not requiring O2. Pt is on IV abx. VASILIY placed call to pt's room to discuss discharge planning. No answer. VASILIY placed call to pt's cell phone and number is not in service. VASILIY spoke with pt's , Terry, via phone to discuss discharge plan. Per Terry, pt/family would prefer pt return home with HH. They do not want pt to go to another facility. Pt has used HH in the past. Pt's does not have a preference of provider. SW explained need to find a HH agency that is in-network with insurance and can see COVID positive pts. Pt's verbalized understanding. VASILIY confirmed pt's home address. facilities planner to fax face sheet to [facility] for review. VASILIY is following to assist as needed with discharge planning.
--- NOTE | 2020-05-31 18:32 | NUR ---
PT CONTINUING TO REFUSE RENAL DIET. MOBILE SALES ASSISTANT ASSESS AND PLACED ON CALORIE COUNT. CONTINUE DAILY DRESSING CHANGE.
[2020-05-31 19:23] VITALS: BP 129/81
--- NOTE | 2020-05-31 23:31 | NUR ---
PT PROGRESSING TOWARDS D/C GOALS. VSS. AFEBRILE. HRR. 2+ GENERALIZED EDEMA NOTED. LUNGS CTA. BS ACTIVE. COLOSTOMY HAS DARK GREEN BROWN STOOL NOTED. ENC PO. PT REFUSED HIS DINNER TRAY. HE STATED IT TASTED TOO BLAND WITH NO SEASONING. REPOSITIONED PT. ALL DRESSING LOOK CLEAN DRY AND INTACT. PT REFUSED FEET TO BE ELEVATED. SCDS ON.
[2020-06-01 05:16] VITALS: BP 136/78
--- NOTE | 2020-06-01 05:50 | NUR ---
PT RESTING QUIETLY. VSS AFEBRILE. COLOSTOMY HAS BROWN STOOL LIQUIDS WITH SEMIFORMED STOOL IN MODERATE AMTS. TRAMMELL HAS LG AMTS CLEAR YELLOW URINE. NO S/S DISTRESS.
[2020-06-01 07:52] LABS: CALCIUM 7.3 mg/dL (8.5-10.1); CREATININE 3.7 mg/dL (0.7-1.3); PHOSPHORUS 5.3 mg/dL (2.5-4.9); POTASSIUM 3.7 mmol/L (3.5-5.1)
[2020-06-01 07:55] VITALS: BP 117/74
[2020-06-01 08:06] LABS: ALBUMIN 0.5 g/dL (3.4-5.0)
--- NOTE | 2020-06-01 09:21 | NUR ---
Nutrition: Calorie count was started due to prolonged poor oral intake. Pt refused 2 meals this day and consumed 10-20% of the other. No supplement intake. Increased needs for wound healing. Recommend: consider diet liberalization to see if this assists intake however would consider DH placement at this time for enteral feeds: Pivot 1.5 at 100 mL/hr x 12 hrs nocturnally.
--- NOTE | 2020-06-01 13:57 | NUR ---
VASILIY reviewed chart and spoke with nursing and attending physician. Pt is in Enhanced Isolation due to COVID-19. Pt is afebrile and on IV abx. Pt is on a calorie count. Pt is progressing towards goals for discharge. Pt may be ready for discharge home in 1-2 days pending kidney function. Plan is for pt to d/c home with HH. VASILIY placed call to pt's room. No answer. VASILIY left voice message for pt on his cell phone: [phone]. VASILIY placed call to pt's . No answer or option to leave voice message. master planner is contacting [facility] to coordinate HH for pt. VASILIY is following to assist as needed with discharge planning.
--- NOTE | 2020-06-01 15:32 | NUR ---
FAXED REFERRAL TO [facility]) SPOKE WITH STACEY IN INTAKE THEY RECEIVED REFERRAL AND WILL WAIT FOR DC ORDERS THEN WILL ARRANGE HH FOR PT.
[2020-06-01 16:22] VITALS: BP 132/88
--- NOTE | 2020-06-01 18:48 | NUR ---
PT ALERT/ORIENTED. MEDSURG STATUS. RESTING COMFORTABLY IN BED. NEEDS FREQUENT ENCOURAGEMENT TO PROCEEDE WITH CARE AND TREATMENTS. EVALUATED BY PHYSICAL THERAPY, WILL NEED TO DETERMINE ABILITY TO DISCHARGE HOME DUE TO LARGE SACRAL WOUND. SPOKE WITH DR. RECINOS AND CASE MANAGEMENT ABOUT NEED FOR DISCHARGE PLAN. PT GIVEN IV LASIX THIS AFTERNOON, NOTE IN I/O THAT SUPRAPUBIC CATH WAS LEAKING, SO NOT ACCURATE URINE OUTPUT CHARTED.
[2020-06-01 19:50] VITALS: BP 143/86
[2020-06-02 05:46] VITALS: BP 110/69
[2020-06-02 06:47] LABS: ABSOLUTE NEUTROPHILS 10.6 thou/uL (1.4-8.2); BASOPHILS 0.6 % (0.0-2.0); EOSINOPHILS 3.8 % (0.0-3.0); HEMATOCRIT 26.6 % (42.0-52.0); HEMOGLOBIN 8.9 gm/dL (14.0-18.0); LYMPHOCYTES 16.9 % (24.0-44.0); MCH 28.7 pg (26.0-34.0); MCHC 33.5 g/dL (28.0-37.0); MCV 85.9 fL (80.0-100.0); PLATELET COUNT 430 thou/uL (150-400); POLYS 69.7 % (36.0-66.0); RDW 16.8 % (10.5-14.5); WBC 15.1 thou/uL (4.0-11.0)
[2020-06-02 07:10] LABS: ALBUMIN 0.5 g/dL (3.4-5.0); CALCIUM 7.5 mg/dL (8.5-10.1); CREATININE 3.3 mg/dL (0.7-1.3); PHOSPHORUS 4.9 mg/dL (2.5-4.9); POTASSIUM 3.6 mmol/L (3.5-5.1)
--- NOTE | 2020-06-02 07:20 | NUR ---
Pt. slept fair in between repositioning. Tolerating room air well with no respiratory distress. Cont. on enhanced precaution, afebrile. Denies need for pain med though requested nausea med last night with good relief.Dressing on his sacral area reinforced. Colostomy with liquid stool.
[2020-06-02 08:30] VITALS: BP 111/64
--- NOTE | 2020-06-02 10:53 | NUR ---
Nutrition: Day 2 calorie count reveals pt consumed the majority of 3 ensure enlive supplements but refused all meals. Met 40-44% of needs. Will increase ensures to 2 per tray. If able to drink 6 ensures/day alone will meet 95-100% of needs. Continue to recommend liberalizing diet for improved taste for pt and hopefully he laura start to eat meals with some variety. Plan to D/C home soon.
--- NOTE | 2020-06-02 12:28 | NUR ---
ASSUME PATIENT CARE THIS AM AT APPROXIMATELY 0700. PATIENT AWAKE ALERT ORIENTED, NO ACUTE DISTRESS NOTED AT THIS TIME. PATIENT CONCERNS TODAY INCLUDE: DIET, AND TRAMMELL CATHETER; PATIENT IS REFUSING TO EAT HIS MEALS, STATES THAT THE FOOD HAS NO TASTE AND DOES NOT LIKE THE DIET HE HAS ORDERED. PATIENT ALSO STATES THAT HIS SUPRAPUBIC CATHETER HAS BEEN LEAKING, MADE DR. NDIAYE AWARE. SEE NEW ORDERS FOR IR TO INSERT NEW TRAMMELL. NEW COVID SWAB ORDERED FOR PATIENT. EXPLAINED PROCEDURE/INDICATION TO PATIENT AND PATIENT REFUSED RE-SWAB, STATES THAT HE WILL NOT BE GOING TO A FACILITY AND HE DOES NOT WANT IT DONE. DR. NDIAYE MADE AWARE CALLED VASILIY DOSS TO MAKE AWARE OF PATIENT PLAN FOR DISCHARGE
--- NOTE | 2020-06-02 13:12 | NUR ---
VASILIY reviewed chart and spoke with nursing and attending physician. Pt is progressing towards goals for discharge. Recommendation made for pt to go to LTAC for continued wound care and medical mgmt. Wound care physician to speak with pt about going to an LTAC. Repeat COVID test ordered. [facility] is not accepting COVID positive pts at this time. [facility] is able to accept COVID positive pts. VASILIY spoke with pt via phone to discuss discharge plan. Pt states he is admamant about going home with HH services. Pt refused to have repeat COVID test today. Pt states he has been to both [facility] and [facility] and feels that the services they provide at the facilities, he would be able to have at home. Pt states he is normally able to transfer himself using his upper body strength. He does not use a sliding board or life device at home. Pt requests to go home with HH. VASILIY updated pt's nurse and wound care physician. digital media planner is coordinating HH for pt. VASILIY is following to assist as needed with discharge planning.
[2020-06-02 17:17] VITALS: BP 120/75
[2020-06-02 19:57] VITALS: BP 111/68
[2020-06-03 04:43] VITALS: BP 86/51
--- NOTE | 2020-06-03 05:08 | NUR ---
Pt. slept fair during the night. Tolerating room air well. Repositioned prn and at times he refuses. Refused to be swabbed for COVID. He verbalized he is going nowhere but home. Cont. on enhanced precaution ,afebrile. Requested nausea med x1 after taking HS meds. He ate half of subway sandwich and drank to cans/bottle of ensure. SPC cath and colostomy in place.
[2020-06-03 06:20] VITALS: BP 114/73
[2020-06-03 06:47] LABS: ALBUMIN < 0.6 g/dL (3.4-5.0); ANION GAP 7 mmol/L (7-16); BUN 44 mg/dL (7-18); CHLORIDE 106 mmol/L (98-107); CO2 26 mmol/L (21-32); CREATININE 2.9 mg/dL (0.7-1.3); GLUCOSE 67 mg/dL (74-106); PHOSPHORUS 4.6 mg/dL (2.5-4.9); POTASSIUM 3.4 mmol/L (3.5-5.1); SODIUM 139 mmol/L (136-145)
[2020-06-03 07:29] VITALS: BP 103/60
--- NOTE | 2020-06-03 11:23 | NUR ---
ASSUMED PATIENT CARE THIS AM AT APPROXIMATELY 0700. PATIENT IS AWAKE ALERT. NO ACUTE DISTRESS NOTED. ASSESSMENT AND MEDS CHARTED. PATIENT POTASSIUM REPLACED THIS AM PER RENAL MD. DIET CHANGED PER RENAL MD TO LOW SODIUM BECAUSE PATIENT NOT EATING ANY OF RENAL MEALS DUE TO NOT LIKING THE TASTE OF FOOD. PATIENT TOLERATING TURNING THIS AM. HEELS OFFLOADED AT ALL TIMES.
[2020-06-03 15:18] VITALS: BP 102/68
--- NOTE | 2020-06-03 15:53 | NUR ---
VASILIY reviewed chart and spoke with nursing and attending physician. Pt is progressing towards goals for discharge. Pt remains in Enhanced Isolation due to COVID-19. Pt is afebrile and not requiring O2. Pt is on IV abx. Pt refused repeat COVID test, as pt is adamant about returning home. Pt will need home IV abx. Awaiting final recommendations at this time. life care planner has been in contact with [facility] for services. Will need to fax final discharge orders/summary to [facility] and then they will assign to their in-network providers. VASILIY spoke with pt via phone to discuss discharge plan. Pt states his and family are arranging their schedules to accommodate pt being at home and requiring additional care. SW updated attending physician. VASILIY is following to assist as needed with discharge planning.
[2020-06-04 04:14] VITALS: BP 95/60
--- NOTE | 2020-06-04 05:15 | NUR ---
Pt. slept fair during the night. Repositioned prn , other times he refuses. Cont. on enhanced precaution , afebrile. No c/o nausea this shift and he stated he ate better yesterday and drank his ( ensure) supplement. Wound dressings intact.
[2020-06-04 08:32] VITALS: BP 108/66
--- NOTE | 2020-06-04 09:12 | NUR ---
OSTOMY CARE; POUCH ON SINCE 05/31, CHANGED THIS AM USING SHERI 2 PIECE SYSTEM, CUT TO FIT, ADAPT RING APPLIED UNDER WAFER, STOMA RED VIABLE, BUDDED, SCANT BLEEDING PERISTOMAL SUTURES, PERISTOMAL SKIN INTACT, STOOL BROWN, MUSHY, RECEPTIVE TO EDUCATION, REMEMBERS PROCEDURE VERY WELL. WANTING TO GO HOME AND STATES [facility] WILL ASSIST W/ WOUND AND OSTOMY CARE, INFOR AND SUPPLIES AT BS, REMINDED PT ENROLLED IN [employer] SECURE START PROGRAM W/ SUPPLIES SENT TO HOME, PT STATES HE THOUGHT SUPPLIES CAME BUT WILL CHECK W/ TO MAKE SURE, WILL CONT TO FOLLOW RECOMMENDATIONS; CONT TO EMPTY POUCH PRN, CHANGE APPLIANCE Q3-5D DAYS AND PRN, SHERI CUT TO FIT TREE PULLER AWARE
[2020-06-04] MEDS ORDERED: CEFTRIAXONE2 G1 IVPB (12:32)
[2020-06-04] MEDS ORDERED: METRONIDAZOLE500 M6 IVPB (12:37)
[2020-06-04] MEDS ORDERED: TORSEMIDE20 MG PO (12:38)
--- NOTE | 2020-06-04 14:06 | NUR ---
VASILIY reviewed chart and spoke with nursing and attending physician. Pt is medically stable for discharge home with HH and Home IV abx. VASILIY spoke with Letty at [facility] regarding pt's home IV abx. Will need to have final orders, in order to approve and send to a provider. VASILIY spoke with Alma Delia at [facility] regarding pt's home health. Intake ID # [id number]. Will need final d/c orders, in order to approve and sent to a provider. [facility] has 24-48 hours to assign to a provider. VASILIY faxed finalized discharge orders/summary to [facility]. VASILIY placed call to pt's room. No answer. VASILIY spoke with pt's via phone to provide update and discuss discharge plan. Possible weekend discharge if insurance approves and assigns HH and Home IV abx to a provider. Pt will need w/c van transportation home. Pt's w/c is in his room. [facility] is able to transport COVID positive pts. Pt's is agreeable with discharge plan. VASILIY updated pt's nurse. VASILIY is following to assist as needed with discharge planning. [facility] (HOME HEALTH)--Phone: Fax: (HOME INFUSION)--Phone: Fax: [facility]--
[2020-06-04 16:22] VITALS: BP 106/66
[2020-06-04 16:58] VITALS: BP 106/66
--- NOTE | 2020-06-04 17:58 | NUR ---
ASSUMED PATIENT CARE AT 0700. A/O X4. NO DISDRESS NOTED. DRESSING CHANGE PER ORDER. PROGRESSING TOWARDS POC GOALS.
[2020-06-04 20:20] VITALS: BP 116/75
--- NOTE | 2020-06-04 21:35 | NUR ---
PT ALERT AND ORIENTED X4. VSS T 99.1. HRR. LUNGS CTA. WOUND DRESINGS INTACT. DENIED PAIN. NO S/S DISTRESS. BED DOWN. CALL LIGHT IN REACH. BED ALARM ON.
[2020-06-05 04:32] VITALS: BP 116/64
--- NOTE | 2020-06-05 05:34 | NUR ---
PT RESTING QUIETLY. NO C/O PAIN. NO S/S DISTRESS. VSS AFEBRILE THIS AM.
[2020-06-05 08:17] VITALS: BP 106/70
--- NOTE | 2020-06-05 11:35 | NUR ---
ASSUMED PATIENT CARE THIS AM AT APPROXIMATELY 0700. PATIENT IS AWAKE ALERT ORIENTED. IN NO ACUTE DISTRESS. RECEIVING IV ABO ORDERED. SPOKE WITH PATIENT THIS AM REGARDING PLAN OF CARE AND PLAN FOR DISCHARGE TODAY AFTER IV ABO FINISHED INFUSING. PATIENT UPSET AND STATES THAT HIS UNDERSTANDING HE WAS GOING TO BE DISCHARGED ON SUNDAY. STATES THAT HIS IS UNABLE TO CARE FOR HIM THIS WEEKEND BECAUSE SHE IS WORKING AND DOES NOT FEEL SAFE GOING HOME AT THIS TIME. CONCERNS BROUGHT TO DR. NDIAYE. STATES NOW PLAN IS TO D/C ON SUNDAY.
[2020-06-05 17:30] VITALS: BP 107/61
[2020-06-05 19:33] VITALS: BP 96/61
[2020-06-06 04:08] VITALS: BP 98/58
--- NOTE | 2020-06-06 07:03 | NUR ---
ASSUMED CARE AT 1900, ASSESSMENT COMPLETED. PT REPORTED MODERATE GENERALIZED PAIN, DECLINE NARCOTIC PAIN MEDS BUT ACCEPTED TYLENOL AT HS. DENIES NAUSEA OR SOB. REFUSED TURNS ALL BUT ONCE DURING THE NIGHT. HIGH OUTPUT FROM SUPRAPUBIC CATH. NO OTHER CONCERNS, SHIFT REPORT AT 0700.
[2020-06-06 07:30] VITALS: BP 91/55
--- NOTE | 2020-06-06 11:22 | NUR ---
ASSUMED PATIENT CARE THIS AM AT APPROXIMATELY 0700. PATIENT BP THIS AM LOW 90S SYS. INFORMED DR. NDIAYE, CALLED RENAL TO MAKE AWARE. SEE NEW ORDERS TO DC TORSEMIDE. PATIENT ASYMPTOMATIC WIH HYPOTENSION, DENIES ANY DIZZINESS AT THIS TIME. WILL CTM. PATIENT DRESSING CHANGED THIS AM AND TOLERATED WELL. POOR APPETITE THIS AM. ALTHOUGH ENCOURAGED PO WATER INTAKE AND STATES UNDERSTANDING.
[2020-06-06 12:00] VITALS: BP 98/64
[2020-06-06 16:51] VITALS: BP 100/68
[2020-06-06 20:27] VITALS: BP 102/63
[2020-06-07 04:31] VITALS: BP 95/62
[2020-06-07 05:35] LABS: ALBUMIN 0.5 g/dL (3.4-5.0); CALCIUM 7.2 mg/dL (8.5-10.1); CREATININE 2.2 mg/dL (0.7-1.3); PHOSPHORUS 4.4 mg/dL (2.5-4.9); POTASSIUM 3.7 mmol/L (3.5-5.1)
--- NOTE | 2020-06-07 06:19 | NUR ---
ASSUMED CARE AT 1900. PT DENIED SOB. REPORTED GENERALIZED PAIN AND ASKED FOR TYLENOL AT HS, DECLINED TAKING NARCOTIC AGAIN. PT REPORTS POOR APPETITE, STATING IT IS BECAUSE HIS TASTE IS OFF FROM "BURNING MY TONGUE ON SOUP"; ALSO STATED THE ZINC MAKES HIM SOMEWHAT NAUSEATED, ENCOURAGED HIM TO HAVE SOME CRACKERS OR OTHER SNACK AT SAME TIME TO MAKE MED EASIER ON HIS STOMACH, AND HE ATE SEVERAL ANGELI CRACKERS. 150 SOFT/FORMED STOOL FROM COLOSTOMY, 700 ML FROM CATHETER. PT REQUESTED TO BE TURNED TWICE, AND DID A GOOD JOB TURNING AND SHIFTING HIMSELF IN BED WELL. PLAN FOR D/C HOME W/ HH TODAY. NO OTHER CONCERNS, WILL CONTINUE TO MONITOR.
[2020-06-07 08:03] VITALS: BP 100/60
--- NOTE | 2020-06-07 09:32 | NUR ---
OSTOMY CARE; POSSIBLE DC TODAT, POUCH CHANGED USING SHERI 2 PIECE SYSTEM CUT TO FIT,ADAPT RING APPLIED UNDER WAFER, STOMA RED VIABLE, SLIGHTLY BUDDED, PERISTOMAL SKIN INTACT, LOOSE BROWN STOOL NOTED, VERY RECEPTIVE TO EDUCATION, REVIEWED DIET, EMPTYING POUCH, CHANGING, S/S REPORT, ETC, INFORM AND SUPPLIES AT BS, PT STATES SECURE START KIT DID ARRIVE AT HOME, PHONE #THIS WO NURSE GIVEN TO PT TO CALL W/ ANY QUESTIONS/ISSUES, TO HAVE HOME HEALTH SERVICES RECOMMENDATIONS; RT OSTOMY CARE, CHANGED Q3-5 DAYS AND PRN, EMPTY PRN MEDICAL ART THERAPIST AWARE
--- NOTE | 2020-06-07 13:09 | NUR ---
DISCHARGE NOTE: VASILIY reviewed chart and spoke with nursing and attending physician. Pt is medically stable to discharge home today with HH/Home IV abx through [facility]. [facility] to provide the [facility] health care as well as IV abx. VASILIY confirmed with Laura at [facility] that pt will d/c home today. Laura has spoke with pt and his to arrange for education to be completed at home, as pt is in Enhanced Isolation. [facility] will deliver supplies and abx today and will be at pt's home tomorrow to assist with first dose. VASILIY spoke with pt via phone to confirm discharge plan. Pt's w/c at bedside for transport. VASILIY arranged w/c van transportation through [facility] [employer] for [phone]. Director of Case Mgmt approved. VASILIY updated pt and pt's nurse. Pt requesting to speak with wound care physician prior to discharge. [facility] has discharge orders/summary. Contact info for [facility] placed in pt's discharge summary. Pt to notify his family of transportation time. No additional SW needs identiifed at this time, but is available to assist should needs arise.
[2020-06-07 15:06] VITALS: BP 106/66
--- NOTE | 2020-06-07 15:13 | NUR ---
ASSUMED PATIENT CARE THIS AM AT APPROXIMATELY 0700 . PATIENT IS AWAKE ALERT ORIENTED, IN NO ACUTE DISTRESS. PATIENT PLAN IS TO DISCHARGE TODAY TO HOME WITH HOME HEALTH WITH CARE OF . PATIENT RECIEVING DOSES OF IV ABO FOR TODAY AND TO DC HOME AFTER. DRESSING CHANGE COMPLETED TO SACRUM AND RIGHT HIP AND TOLERATED WELL. PICTURES TAKEN AND PLACED ON CHART. SEE WOUND CARE DOCUMENTATION. SPOKE WITH CM AND STATES WORKING ON HOME HEALTH WOUND CARE SET UP. PATIENT TO BE TRANSPORTED OFF UNIT VIA WHEELCHAIR VAN IN HIS OWN PERSONAL WHEELCHAIR AT [phone] TODAY. ALL BELONGINGS GATHERED FROM ROOM. SPOKE WITH DR. NDIAYE AND STATES TO TELL PATIENT NOT TO TAKE TORESMIDE PO AT HOME, THIS WAS RELAYED TO PATIENT AND HE STATES UNDERSTANDING.
--- NOTE | 2020-06-09 14:16 | NUR ---
VASILIY notified by Director of Case Mgmt that pt [facility], as his HH provider has not yet contacted him. Pt was discharged home on Sunday, 06/07. VASILIY reviewed chart. [facility] had authorized [facility] to provide HH. VASILIY spoke with Jaimie in intake at [facility], who did not have any info on file. Jaimie states that if they had contacted someone on Sunday, and they were not able to staff the request, the info would not have been sent. VASILIY not notified by [facility] of any issues. VASILIY faxed clinical info and discharge orders/summary to [facility] for review. Received confirmation. Jaimie to check staffing and can accept pt if they are able to start care. Awaiting call back from Jaimie to confirm. VASILIY updated Director of Case Mgmt. VASILIY is following to assist as needed.
--- NOTE | 2020-06-09 16:45 | NUR ---
F/U WITH ANIYA WELSH SPOKE WITH YENI AND SHE SPOKE WITH [facility] AND THEY ARE AT [facility] SO SHE WILL FIND A HH PROVIDER FOR PT AND WILL NOTIFY PT AND CASE MANAGMENT AND LET US KNOW WHO ACCEPTED PT FOR HH.
--- NOTE | 2020-06-11 17:00 | NUR ---
SW received call from Bruna Gonzalez at [facility] regarding pt's HH. SW returned call and left voice message explaining that discharge orders were faxed multiple times and a HH provider needs to be assigned [id number]. Intake ID# [id number].
--- NOTE | 2020-06-14 17:05 | NUR ---
VASILIY received call from Karo at [facility], requesting updated orders for pt to have HH services. ( [id number]) VASILIY returned call and was unable to leave a voice message for Karo. VASILIY placed call to [facility] and spoke with Michela regarding need for HH services. Per Michela, [facility] has exhausted all in-network HH providers and are working with [id number] HH providers. Michela states that [facility], [facility], [facility], [facility], [facility], [facility] and three other HH agencies have declined pt. [facility] is working on it and per Michela, keeps the pt updated every four hours. VASILIY received call from Janie at Dr. Samaniego's office regarding the HH for pt. VASILIY to follow up with Janie tomorrow, as the office is currently closed.
--- NOTE | 2020-06-15 12:55 | NUR ---
Spoke with Suhail Medley at [phone] options 4, 2, 1, 3 and 1. Explained the patient discharged nearly one week prior. We have sent multiple updates and their organization needs to reach out to the Wound Care MD's and the patient to give all further updates. Suhail informs me they have an agency and waiting to hear on a wound nurse to staff the patient's needs. Also stated they have HH with a Start of care date of 06-15-2020 through [facility]. I stated that it was incumbent on his organization to call the patient and explain that the hospital and wound care clinic have given all pertinent information and that "he" was to have his company explain the delay of care was on their processes. He stated he would have this taken care of today.
== END 2020-06-07 15:47 | disposition home health service (06) | DRG 853 ==
LOC: ER 12:34 → 4W 15:23 → 2N 15:23 → 3W 15:23 → 4W 05-19 14:57 → 3W 05-19 16:49
PROVIDERS: Hospitalist; Internal Medicine Nephrology; Physician Assistant; Radiology Diagnostic Radiology; Specialist; Surgery; ADMIT Internal Medicine; ATTEND Internal Medicine
PROC: 0QB10ZZ Excision of Sacrum, Open Approach (ICD-10-PCS; principal; 2020-05-20)
PROC: 02H633Z Insertion of Infusion Device into Right Atrium, Percutaneous Approach (ICD-10-PCS; 2020-05-25)
PROC: 0T2BX0Z Change Drainage Device in Bladder, External Approach (ICD-10-PCS; 2020-05-25)
PROC: B548ZZA Ultrasonography of Superior Vena Cava, Guidance (ICD-10-PCS; 2020-05-25)
PROC: 30233N1 Transfusion of Nonautologous Red Blood Cells into Peripheral Vein, Percutaneous Approach (ICD-10-PCS; 2020-05-25)
PROC: 0D1L4Z4 Bypass Transverse Colon to Cutaneous, Percutaneous Endoscopic Approach (ICD-10-PCS; 2020-05-26)
PROC: 0QB10ZZ Excision of Sacrum, Open Approach (ICD-10-PCS; 2020-05-26)
DX: A41.89 Other specified sepsis (principal); U07.1 COVID-19; L89.154 Pressure ulcer of sacral region, stage 4; N17.0 Acute kidney failure with tubular necrosis; E43 Unspecified severe protein-calorie malnutrition; G82.20 Paraplegia, unspecified; M46.28 Osteomyelitis of vertebra, sacral and sacrococcygeal region; D62 Acute posthemorrhagic anemia; T83.018A Breakdown (mechanical) of other urinary catheter, initial encounter; L98.499 Non-pressure chronic ulcer of skin of other sites with unspecified severity; K21.9 Gastro-esophageal reflux disease without esophagitis; D63.1 Anemia in chronic kidney disease; E87.5 Hyperkalemia; Y73.8 Miscellaneous gastroenterology and urology devices associated with adverse incidents, not elsewhere classified; Y83.8 Other surgical procedures as the cause of abnormal reaction of the patient, or of later complication, without mention of misadventure at the time of the procedure; D47.3 Essential (hemorrhagic) thrombocythemia; I95.9 Hypotension, unspecified; T36.8X5A Adverse effect of other systemic antibiotics, initial encounter; Z79.899 Other long term (current) drug therapy; Z68.31 Body mass index [BMI] 31.0-31.9, adult; Y92.89 Other specified places as the place of occurrence of the external cause
CPT/HCPCS: 10080; 10081; 10879; 50101; 50290; 50386; 50403; 50555; 50558; 50740; 50962; 52265; 53307; 54022; 54118; 56524; 56525; 56526; 57119; 57120; 57192; 62110; 62900

== ENCOUNTER → 2020-05-18 | Outpatient (CLI) | payer MEDICARE, OTHER ==
[~2020-05-18] MED LIST changes: +PERCOCET 10-321 EAC1 PO
== END ==
LOC: HYPER 09:50
PROVIDERS: ATTEND Emergency Medicine
DX: L89.154 Pressure ulcer of sacral region, stage 4 (principal); L02.215 Cutaneous abscess of perineum; G06.1 Intraspinal abscess and granuloma; R60.0 Localized edema; G82.21 Paraplegia, complete; G89.4 Chronic pain syndrome; M86.8X8 Other osteomyelitis, other site